=== PATIENT | male | born 1990 | race Two or more races ===

== ENCOUNTER 2017-11-06 10:27 | Emergency (ER) | payer OTHER ==
[~2017-11-06] VITALS: Ht 165.1 cm; Wt 78.5 kg
[2017-11-06 12:59] LABS: Basophils # (auto) 0 uL; Basophils % (auto) 0.5 % (0.0-2.0); Eosinophils # (auto) 0.1 uL; Eosinophils % (auto) 0.8 % (0.0-7.0); Hematocrit 45.4 % (41.0-53.0); Lymphocytes # (auto) 1.2 uL; Lymphocytes % (auto) 16.4 % (10.0-50.0); Mean Corpuscular Hemoglobin 32.4 pg (28.0-32.0); Mean Corpuscular Hgb Conc. 35.1 g/dL (32.0-36.0); Mean Corpuscular Volume 92.3 fL (80.0-100.0); Monocytes # (auto) 0.9 uL; Monocytes % (auto) 12.8 % (0.0-12.0); Neutrophils % (auto) 69.5 % (37.0-80.0); Nucleated Red Blood Cells % 0.2 %; Platelet Count (auto) 213 10^3/uL (140-450); Red Blood Cells 4.93 10^6/uL (4.5-5.90); Red Cell Distribution Width 13.4 % (11.8-14.3); White Blood Cell 7.2 10^3/uL (4.4-10.8)
[2017-11-06 13:30] LABS: Albumin 4.1 g/dL (3.4-5.0); BUN/Creatinine Ratio 12.2; Bilirubin, Total 0.5 mg/dL (0.2-1.0); Calcium 8.3 mg/dL (8.5-10.1); Total Protein 7.6 g/dL (6.4-8.2)
[2017-11-06] MEDS ORDERED: ACETAMINOPHEN 325 MG TAB PO ONE ×2 (13:35→13:45)
[2017-11-06] MEDS ORDERED: cefTRIAXone W LIDOCAINE 1 GM IM IM ONE (13:45)
[2017-11-06 14:00] VITALS: BP 144/76
== END 2017-11-06 14:15 | disposition home or self-care (01) ==
LOC: ER 10:27
DX: J06.9 Acute upper respiratory infection, unspecified (principal)
CPT/HCPCS: 36415; 71045; 74176; 80053; 82150; 85025; 99285; J0696